=== PATIENT | male | born 1950 ===

== ENCOUNTER 2023-12-25 09:26 | Outpatient (CLI) | payer OTHER, SELFPAY ==
[2023-12-25 10:45] LABS: Alanine Aminotransferase 30 U/L (12-78); Albumin Level 4.2 g/dl (3.5-5.0); Albumin/Globulin Ratio 1.6 (1.1-1.8); Alkaline Phosphatase 50 U/L (38-126); Anion Gap 8.4 mEq/L (5-15); Aspartate Amino Transferase 29 U/L (17-59); Bilirubin,Total 0.8 mg/dl (0.2-1.3); Blood Urea Nitrogen 24 mg/dl (9-20); Calcium 9.3 mg/dl (8.4-10.2); Carbon Dioxide 28 mmol/L (22.0-30.0); Chloride 108 mmol/L (98-107); Estimated Glomerular Filt Rate 82 ml/min (>60); GFR (African American) 100 ML/MIN (>60); Globulin 2.6 g/dL (1.3-3.2); Glucose 101 mg/dl (74-100); Potassium 4.4 mmoL/L (3.5-5.1); Sodium 140 mmol/L (136-145); Total Protein,Serum 6.8 g/dl (6.3-8.2)
[2023-12-27 23:55] LABS: Hepatitis C Antibody Reactive
== END 2023-12-25 23:59 ==
LOC: LAB 09:28
PROVIDERS: Visit Provider Chiropractor
DX: K73.8 Other chronic hepatitis, not elsewhere classified (principal)
CPT/HCPCS: 36415; 80053; 87380